=== PATIENT | male | born 2000 | race Caucasian/White ===

== ENCOUNTER 2024-11-20 16:46 | Emergency (ER) | payer BC, SELFPAY ==
[2024-11-20 16:50] VITALS: BP 125/83
--- NOTE | 2024-11-20 17:36 | ED.GENMED ---
History of Present Illness
General
Chief Complaint: Musculo-Skeletal Complaint
Time Seen by Provider: 11/20/24 17:35
History of Present Illness
History of Present Illness:
TIME OF INITIAL ENCOUNTER: 5:40 PM
HPI: Over the weekend, the patient was running and injured his left foot. He is not quite sure how he injured the foot. He denies any ankle pain. He denies any other injury. There is no associated laceration. Pain worsens with palpation at the
metatarsal.
EXAM:
GENERAL: Well appearing in no distress
HEENT: Moist oral mucosa
NEUROLOGIC: Excellent strength all extremities, no obvious coordination deficits
PSYCHIATRIC: Appropriate mental status, normal insight and judgement
EXTREMITIES: No significant edema noted however there is prominent tenderness diffusely at the fifth metatarsal
SKIN: No rash, no lesions
NUMBER AND COMPLEXITY OF PROBLEMS ADDRESSED AT THE ENCOUNTER
� Chronic conditions affecting care: Tourette's
� Acute Exacerbation and/or Progression of Chronic Illness: This is an acute problem
� Differential Diagnosis includes: Base of the fifth metatarsal fracture, foot sprain, foot contusion, ankle sprain
AMOUNT AND/OR COMPLEXITY OF DATA TO BE REVIEWED AND ANALYZED
� I performed an independent evaluation of and my interpretation is:
EKG:
CT:
X-rays: I personally viewed x-ray and agree with radiologist interpretation that there is a fracture of the base of the fifth metatarsal
Laboratory Studies:
Other:
� Review of other/old records: The patient was seen here in 2020 with a laceration
� Clinical information was obtained by an independent historian:
� Prescriptions/Medications Considered but not given: Patient declines any further analgesia
� Further testing considered but not performed:
RISK OF COMPLICATIONS AND/OR MORBIDITY OR MORTALITY OF PATIENT MANAGEMENT
� Social determinants of health affecting care: Lives at home
� Discussion with other providers:
� Escalation of care including admission/observation vs risk of discharge considered: The patient is found to have a fracture at the base of the fifth metatarsal. Placed in Ortho boot and to follow-up with orthopedics as needed.
He has already been taking NSAIDs.
ANY OTHER UPDATES:
Past History
Past History
ED Past Medical History: None
ED Past Surgical History: None
Phy Exam
Physical Exam
Physical Exam:
See HPI
Course
Orders/Labs/Results
Orders:
Orders
11/20/24 16:52
Foot, Left 3 View [CR Foot - Left Min 3 Views] Urgent
Comment:
Reason For Exam: pain, trauma
11/20/24 18:27
Ortho Boot Left- Treatment ONCE
Short or tall?: Short
Vital Signs
Initial and Last Documented VS:
Initial Vital Signs
Temp Pulse Resp BP Pulse Ox
37.0 C 85 18 125/83 100
11/20/24 16:50 11/20/24 16:50 11/20/24 16:50 11/20/24 16:50 11/20/24 16:50
Last Documented Vital Signs
Temp Pulse Resp BP Pulse Ox
37.0 C 85 18 125/83 100
11/20/24 16:50 11/20/24 16:50 11/20/24 16:50 11/20/24 16:50 11/20/24 16:50
*Critical Care Note
Total Time (30-74mins, 75-104mins- exclusive of procedures): Not Applicable
ED Attending Note
-
Portions of this chart may have been created with voice recognition software.� Occasional wrong word or��sound alike� substitutions may have occurred due to the inherent limitations of voice recognition software.
Discharge Plan
Departure
Patient Disposition: Home (Routine Discharge)
Date of Disposition: 11/20/24
Time of Disposition: 18:28
Patient with high blood pressure during this ER visit?: Yes
Discharge Problem:
Fracture of base of fifth metatarsal bone
Instructions: Foot Fracture ED
Referrals:
Lamont Faith MD [Active] - Follow up in 1 week
Baldomero Lloyd MD [Family Provider] -
Activity Restrictions/Additional Instructions:
There appears to be a small nondisplaced fracture at the base of the fifth metatarsal. We have given you a boot which is likely all that you will need. I recommend that you use this over the next several weeks until you are pain-free. You could
follow-up with orthopedics if pain persists.
Interventions
Interventions:
*General Assessment Last Done: 11/20/24 17:59
*Neglect/Abuse Screening Last Done: 11/20/24 17:59
*ED COVID-19 Vaccine History Last Done: 11/20/24 17:59
ED-Musculoskeletal Assessment Last Done: 11/20/24 17:59
Discharge Date and Time
Print Language: MALAWIAN
[2024-11-20 18:48] VITALS: BP 126/86
== END 2024-11-20 18:50 | disposition home or self-care (01) ==
LOC: EMR 16:46
PROVIDERS: EMERGENCY PHYSICIAN Emergency Medicine; FAMILY PHYSICIAN Family Medicine
DX: S92.352A Displaced fracture of fifth metatarsal bone, left foot, initial encounter for closed fracture (principal); X50.0XXA Overexertion from strenuous movement or load, initial encounter; R03.0 Elevated blood-pressure reading, without diagnosis of hypertension
CPT/HCPCS: 99283; 73630